=== PATIENT | female | born 1950 | race Caucasian/White ===

== ENCOUNTER 2016-11-15 05:41 | Outpatient (CLI) | payer MEDICARE ==
[~2016-11-15] VITALS: Ht 172.7 cm; Wt 99.8 kg
[~2016-11-15 05:41] MED LIST changes: -PANT40TA2 PO; -SUCR1TAB36 PO
== END 2016-11-15 14:22 ==
LOC: PREOP 05:41
PROVIDERS: ATTEND Surgery
DX: Z01.818 Encounter for other preprocedural examination (principal); K21.9 Gastro-esophageal reflux disease without esophagitis; R07.9 Chest pain, unspecified

== ENCOUNTER → 2016-11-15 | Outpatient (CLI) | payer MEDICARE ==
[~2016-11-15] MED LIST: ACHD5005 PO; ACYC800T PO; ATOR20TA66 PO; CETI10TA20 PO; CITA20TA4 PO; CYCL10TA9 PO; MELO-195 PO; MMT17NA NS; MTP25TSR PO; OMEP20CA12 PO; PANT40TA2 PO; SUCR1TAB36 PO; [UNRECOGNIZED DRUG - CODE] TP
--- NOTE | 2016-11-15 19:21 | Diagnostic Imaging Report ---
Examination: DEXA scan. Indication: Osteopenia. Technique: Bone mineral density estimated based on dual energy radiography over the lumbar spine and femoral necks, was performed. Findings: The lumbar spine T-score is 1.0. The T-score over the left femoral neck is 0.3 and over the right side is -0.2. Impression: T-score is within normal limits. The lumbar spine measurements are probably slightly exaggerated due to sclerotic degenerative changes. Dictated by: Dictated on workstation # [id number]
--- NOTE | 2016-11-16 08:18 | Diagnostic Imaging Report ---
Bilateral screening mammogram The current study was also evaluated with a Computer Aided Detection (CAD) system. Indication: Screening. No current complaints stated on the questionnaire. COMPARISON: 08/29/15. FINDINGS: The breasts are composed of scattered fibroglandular densities. No mass, architectural distortion or suspicious cluster of calcification seen. Allowing for technique and positional differences, no suspicious change is seen. IMPRESSION: No significant change. ACR BI-RADS Category 2: Benign findings. Result letter will be mailed to the patient. Note: At least 10% of breast cancer is not imaged by mammography. Dictated by: Dictated on workstation # [id number]
== END ==
LOC: RAD 10:07
PROVIDERS: ATTEND Obstetrics & Gynecology
DX: Z12.31 Encounter for screening mammogram for malignant neoplasm of breast (principal); Z13.820 Encounter for screening for osteoporosis; M47.816 Spondylosis without myelopathy or radiculopathy, lumbar region; Z78.0 Asymptomatic menopausal state
CPT/HCPCS: 77067; 77080

== ENCOUNTER 2016-11-20 07:48 | Day surgery (SDC) | payer MEDICARE ==
[~2016-11-20] VITALS: Ht 172.7 cm; Wt 99.8 kg
[2016-11-20] MEDS ORDERED: NS IV 1000 ML 1,000 ML IV STA (07:56)
[2016-11-20] MEDS ORDERED: HURRICAINE EXT TUBE (BENZOCAINE) XX PRN (08:00)
[2016-11-20] MEDS ORDERED: NS IV 1000 ML 1,000 ML ONE (08:03)
[2016-11-20 08:21] VITALS: BP 161/81
[2016-11-20] MEDS ORDERED: proPOfol 200 MG/20 ML (DIPRIVAN) VIAL IV ONE (08:29)
[2016-11-20] MEDS ORDERED: MIDAZOLAM 2 MG/2 ML (VERSED) VIAL ONE (08:29)
[2016-11-20] MEDS ORDERED: HURRICAINE EXT TUBE (BENZOCAINE) ONE (09:22)
[2016-11-20] MEDS ORDERED: SUCR1TAB36 PO (09:38)
[2016-11-20] MEDS ORDERED: PANT40TA2 PO (09:38)
--- NOTE | 2016-11-20 09:40 | Discharge Inst-Simple/Standard ---
Discharge Inst-Standard Discharge Medications New, Converted or Re-Newed RX: Transmitted to Pharmacy Patient Instructions/Follow Up Plan of Care/Instructions/FU: Follow up with Dr. Thibodeaux in 3 weeks Take medication as directed Hold Meloxicam for 3 more days. Activity as Tolerated: Yes Discharge Diet: No Restrictions MODE FAIRBANKS APRN Nov 20, 2016 09:40
[2016-11-20 10:05] VITALS: BP 142/84
--- NOTE | 2016-11-20 10:13 | Progress Note-Post Operative ---
Post-Operative Progess Note Surgeon (s)/Adobe Ball Mixer (s) Surgeon MARTÍN FONTANA DO [employer]er: o Pre-Operative Diagnosis GERD Post-Operative Diagnosis gastritis reflux esophgatiits, small hiatal hernia Post-Op Procedure Note Date of Procedure: Nov 20, 2016 Name of Procedure Performed: egd c biopsies Description of the Procedure: see note Findings of the Procedure see note Anesthesia Type per mda Estimated blood loss (mL): none Specimen(s) collected/removed antrum, GE junction MARTÍN FONTANA DO Nov 20, 2016 10:12 am
[2016-11-20 10:55] VITALS: BP 159/87
[2016-11-20 11:05] VITALS: BP 159/87
--- NOTE | 2016-11-21 10:11 | PROCEDURE REPORT ---
PROCEDURE PHYSICIAN: MARTÍN THIBODEAUX DATE OF PROCEDURE: 11/20/2016 PREOPERATIVE DIAGNOSIS: GERD. POSTOPERATIVE DIAGNOSES: 1. Gastritis. 2. Small hiatal hernia. 3. Reflux esophagitis. PROCEDURE: EGD with biopsy. SURGEON: Dr. Thibodeaux. ANESTHESIA: Per MDA. ESTIMATED BLOOD LOSS: None. COMPLICATIONS: None. INDICATIONS: The patient is a 66-year-old female with GERD symptoms. She was having chest pain and cardiology also wished for an EGD be performed. She understands the risks and benefits of the procedure and wished to proceed with the procedure. Consent was signed on the chart. PROCEDURE: The patient was taken to the endoscopy suite, placed in left lateral recumbent position. Timeout was performed. The scope was then inserted in the mouth, down the esophagus, stomach and into the duodenum. There were no polyps, masses or ulcerations of the duodenum. The scope was slowly back to the antrum which had erythematous changes. Biopsy of the antrum was obtained. The scope was then retroflexed noting a very small hiatal hernia. There were no polyps, masses, or ulcerations. The scope was returned to its normal position and slowly withdrawn. Some erythematous changes at the GE junction consistent some reflux esophagitis. A biopsy was obtained at this area. The scope was then slowly retracted back noting no other pathology. The patient tolerated the procedure well without any complications. She was taken to recovery room in stable condition. RECOMMENDATIONS: The patient will be switched to Protonix 40 mg daily and Carafate 1 gram 4 times a day. We will see how she is doing in 3 to 4 weeks in the office, further recommendations pending her symptoms at that time and pathology results. Job ID: [id number] Dictated Date: 11/20/2016 10:15:45 Harness Cleaner Date: 11/21/2016 10:06:32 / [email or web address]
--- OUTSIDE RECORDS SUMMARY | 2016-12-23 13:26 | XMS REPORT | Continuity of Care Document ---
Author Author [facility] Organization [facility] Address Unknown Phone Unavailable Allergies Active Description Code Type Severity Reaction Onset Reported/Identified Relationship to Patient Clinical Status Yes LATEX LATEX Mild N/A 03/09/2012 Yes SEASONAL SEASONAL Mild N/A 03/09/2012 Medications Problems Date Dx Coded Attending Type Code Diagnosis Diagnosed By 03/09/2012 Ot 724.2 LUMBAGO 10/14/2013 HONEY KIMBALL MD Ot 272.4 HYPERLIPIDEMIA NEC/NOS 10/14/2013 OHNEY KIMBALL MD Ot 278.00 OBESITY, NOS 10/14/2013 HONEY KIMBALL MD Ot 327.23 OBSTRUCTIVE SLEEP APNEA (ADULT) (PEDIATR 10/14/2013 HONEY KIMBALL MD Ot 401.9 HYPERTENSION NOS 10/14/2013 HONEY KIMBALL MD Ot 496 CHR AIRWAY OBSTRUCT NEC 10/14/2013 HONEY KIMBALL MD Ot 786.50 CHEST PAIN NOS 10/14/2013 HONEY KIMBALL MD Ot 794.30 ABN CARDIOVASC STUDY NOS 10/14/2013 HONEY KIMBALL MD Ot V58.69 OTH MED,LT,CURRENT USE 10/14/2013 HONEY KIMBALL MD Ot V85.33 BODY MASS INDEX 33.0-33.9, ADULT 07/28/2014 NAYAN MONTES DO Ot 327.23 OBSTRUCTIVE SLEEP APNEA (ADULT) (PEDIATR 08/29/2015 HONEY KIMBALL MD Ot 272.1 08/29/2015 HONEY KIMBALL MD Ot 272.3 08/29/2015 HONEY KIMBALL MD Ot 272.4 08/29/2015 HONEY KIMBALL MD Ot 401.9 08/29/2015 HONEY KIMBALL MD Ot 414.00 08/29/2015 HONEY KIMBALL MD Ot 571.8 08/29/2015 HONEY KIMBALL MD Ot 789.1 08/29/2015 HONEY KIMBALL MD Ot 790.6 09/16/2015 HANNA DE GUZMAN MD Ot Z12.31 10/06/2015 CAMERON TRAN MD Ot N64.4 10/27/2015 FONTANA DO MARTÍN D Ot Z01.818 ENCOUNTER FOR OTHER PREPROCEDURAL EXAMIN 10/27/2015 MARIZOL FANGMARTNÍ Ot Z12.11 ENCOUNTER FOR SCREENING FOR MALIGNANT NE 10/27/2015 MARIZOL FANGMARTÍN Ot Z87.19 PERSONAL HISTORY OF OTHER DISEASES OF TH 10/31/2015 MARIZOL FANGMARTÍN Ot Z01.818 10/31/2015 MARIZOL FANGMARTÍN Ot Z12.11 10/31/2015 MARIZOL FANGMARTÍN Ot Z87.19 11/08/2015 MARIZOL FANGMARTÍN Ot Z12.11 ENCOUNTER FOR SCREENING FOR MALIGNANT NE 11/08/2015 FONTANA MARTÍN Ot Z80.0 FAMILY HISTORY OF MALIGNANT NEOPLASM OF 11/09/2015 MARIZOL FANGMARTÍN Ot Z12.11 11/09/2015 FONTANA MARTÍN FANG Ot Z80.0 01/06/2016 HONEY KIMBALL MD Ot 272.1 PURE HYPERGLYCERIDEMIA 01/06/2016 HONEY KIMBALL MD Ot 272.3 HYPERCHYLOMICRONEMIA 01/06/2016 HONEY KIMBALL MD Ot 272.4 HYPERLIPIDEMIA NEC/NOS 01/06/2016 HONEY KIMBALL MD Ot 401.9 HYPERTENSION NOS 01/06/2016 HONEY KIMBALL MD Ot 414.00 CORON ATHEROSCLER NOS TYPE VESSEL, NATIV 01/06/2016 HONEY KIMBALL MD Ot 571.8 CHRONIC LIVER DIS NEC 01/06/2016 HONEY KIMBALL MD Ot 789.1 HEPATOMEGALY 01/06/2016 HONEY KIMBALL MD Ot 790.6 ABN BLOOD CHEMISTRY NEC 01/06/2016 GEGE HOWELL, HANNA Talbert Ot Z12.31 ENCNTR SCREEN MAMMOGRAM FOR MALIGNANT NE 01/06/2016 CHELSEA HOWELL, CAMERON Grider Ot N64.4 MASTODYNIA 01/06/2016 JES PEREZ LAST PATTERN GRADER Ot L70.8 OTHER ACNE 01/06/2016 JES PEREZ LAST PATTERN GRADER Ot L73.9 FOLLICULAR DISORDER, UNSPECIFIED 01/09/2016 JES PEREZ LAST PATTERN GRADER Ot L70.8 OTHER ACNE 01/09/2016 JES PEREZ LAST PATTERN GRADER Ot L73.9 FOLLICULAR DISORDER, UNSPECIFIED 10/31/2016 HANNA DE GUZMAN MD Ot 786.09 RESPIRATORY ABNORM NEC 10/31/2016 HANNA DE GUZMAN MD Ot 786.2 COUGH 10/31/2016 HANNA DE GUZMAN MD Ot V76.12 OTH SCREEN MAMMO-MALIGN NEOPLASM OF JENNY 10/31/2016 Ot 272.4 HYPERLIPIDEMIA NEC/NOS 10/31/2016 Ot 327.23 OBSTRUCTIVE SLEEP APNEA (ADULT) (PEDIATR 10/31/2016 Ot 397.0 TRICUSPID VALVE DISEASE 10/31/2016 Ot 424.0 MITRAL VALVE DISORDER 10/31/2016 Ot 786.09 RESPIRATORY ABNORM NEC 10/31/2016 Ot 786.50 CHEST PAIN NOS 10/31/2016 HONEY KIMBALL MD Ot 786.09 RESPIRATORY ABNORM NEC 10/31/2016 HONEY KIMBALL MD Ot 786.50 CHEST PAIN NOS 11/15/2016 HANNA DE GUZMAN MD Ot 786.09 RESPIRATORY ABNORM NEC 11/15/2016 HANNA DE GUZMAN MD Ot 786.2 COUGH 11/15/2016 HANNA DE GUZMAN MD Ot V76.12 OTH SCREEN MAMMO-MALIGN NEOPLASM OF JENNY 11/15/2016 Ot 272.4 HYPERLIPIDEMIA NEC/NOS 11/15/2016 Ot 327.23 OBSTRUCTIVE SLEEP APNEA (ADULT) (PEDIATR 11/15/2016 Ot 397.0 TRICUSPID VALVE DISEASE 11/15/2016 Ot 424.0 MITRAL VALVE DISORDER 11/15/2016 Ot 786.09 RESPIRATORY ABNORM NEC 11/15/2016 Ot 786.50 CHEST PAIN NOS 11/15/2016 HONEY KIMBALL MD Ot 786.09 RESPIRATORY ABNORM NEC 11/15/2016 HONEY KIMBALL MD Ot 786.50 CHEST PAIN NOS 11/16/2016 MARTÍN FONTANA DO Ot K21.9 GASTRO-ESOPHAGEAL REFLUX DISEASE WITHOUT 11/16/2016 MARTÍN FONTANA DO Ot R07.9 CHEST PAIN, UNSPECIFIED 11/16/2016 MARTÍN FONTANA DO Ot Z01.818 ENCOUNTER FOR OTHER PREPROCEDURAL EXAMIN 11/16/2016 CAMERON TRAN MD Ot M47.816 SPONDYLOSIS W/O MYELOPATHY OR RADICULOPA 11/16/2016 CAMERON TRAN MD Ot Z12.31 ENCNTR SCREEN MAMMOGRAM FOR MALIGNANT NE 11/16/2016 CAMERON TRAN MD Ot Z13.820 ENCOUNTER FOR SCREENING FOR OSTEOPOROSIS 11/20/2016 MARTÍN FONTANA DO Ot K21.0 GASTRO-ESOPHAGEAL REFLUX DISEASE WITH ES 11/20/2016 MARTÍN FONTANA DO Ot K29.70 GASTRITIS, UNSPECIFIED, WITHOUT BLEEDING 11/20/2016 MARTÍN FONTANA DO Ot K44.9 DIAPHRAGMATIC HERNIA WITHOUT OBSTRUCTION 11/21/2016 CAMERON TRAN MD Ot M47.816 SPONDYLOSIS W/O MYELOPATHY OR RADICULOPA 11/21/2016 CAMERON TRAN MD Ot Z12.31 ENCNTR SCREEN MAMMOGRAM FOR MALIGNANT NE 11/21/2016 CAMERON TRAN MD Ot Z13.820 ENCOUNTER FOR SCREENING FOR OSTEOPOROSIS 11/21/2016 MARTÍN FONTANA DO Ot K21.0 GASTRO-ESOPHAGEAL REFLUX DISEASE WITH ES 11/21/2016 MARTÍN FONTANA DO Ot K29.70 GASTRITIS, UNSPECIFIED, WITHOUT BLEEDING 11/21/2016 MARTÍN FONTANA DO Ot K44.9 DIAPHRAGMATIC HERNIA WITHOUT OBSTRUCTION 11/29/2016 MARTÍN FONTANA DO Ot K21.0 GASTRO-ESOPHAGEAL REFLUX DISEASE WITH ES 11/29/2016 MARTÍN FONTANA DO Ot K29.70 GASTRITIS, UNSPECIFIED, WITHOUT BLEEDING 11/29/2016 MARTÍN FONTANA DO Ot K44.9 DIAPHRAGMATIC HERNIA WITHOUT OBSTRUCTION 12/12/2016 CAMERON TRAN MD Ot M47.816 SPONDYLOSIS W/O MYELOPATHY OR RADICULOPA 12/12/2016 CAMERON TRAN MD Ot Z12.31 ENCNTR SCREEN MAMMOGRAM FOR MALIGNANT NE 12/12/2016 CAMERON TRAN MD Ot Z13.820 ENCOUNTER FOR SCREENING FOR OSTEOPOROSIS 12/12/2016 CAMERON TRAN MD Ot Z78.0 ASYMPTOMATIC MENOPAUSAL STATE Procedures Results Encounters ACCT No. Visit Date/Time Discharge Status Pt. Type Provider Facility Loc./Unit Complaint [id number] 11/20/2016 07:48:00 2016 11:05:00 DIS Outpatient MARTÍN FONTANA DO [facility] ENDO CHEST PAIN [id number] 11/15/2016 05:41:00 2016 14:22:00 DIS Outpatient MARTÍN FONTANA DO [facility] PREOP CHEST PAIN [id number] 01/06/2016 19:41:00 2015 20:48:00 DIS Emergency JES PEREZ LAST PATTERN GRADER [facility] ER [id number] 11/08/2015 08:21:00 2015 10:45:00 DIS Outpatient MARTÍN FONTANA DO [facility] SDC [id number] 07/27/2014 20:59:00 2013 06:40:00 DIS Outpatient NAYAN MONTES DO [facility] SLEEP [id number] 11/26/2013 08:41:00 2013 23:59:59 CLS Outpatient HONEY KIMBALL MD [facility] RAD [id number] 10/14/2013 07:01:00 2013 23:59:59 CLS Outpatient HONEY KIMBALL MD [facility] CATH ABNORMAL STRES, CAD, SOB, HTN [id number] 10/06/2013 11:50:00 2013 23:59:59 CLS Outpatient HONEY KIMBALL MD [facility] RAD CP,DYSPNEA,HLP [id number] 09/09/2013 15:11:00 2013 23:59:59 CLS Outpatient HANNA DE GUZMAN MD [facility] RAD ROUTINE,DYSPNEA,COUGH [id number] 11/15/2016 10:07:00 ACT Outpatient CAMERON TRAN MD [facility] RAD SCREENING,Z13.820 [id number] 10/27/2015 05:40:00 ACT Outpatient MARTÍN FONTANA DO [facility] PREOP [id number] 09/22/2015 13:01:00 ACT Outpatient CAMERON TRAN MD [facility] RAD [id number] 08/29/2015 07:25:00 ACT Outpatient HANNA DE GUZMAN MD [facility] [id number] 09/29/2013 08:53:00 Document Registration [id number] 03/09/2012 10:42:00 Document Registration
== END 2016-11-20 11:05 | disposition home or self-care (01) ==
LOC: ENDO 07:48
PROVIDERS: ATTEND Surgery
DX: K21.0 Gastro-esophageal reflux disease with esophagitis (principal); K44.9 Diaphragmatic hernia without obstruction or gangrene; K29.70 Gastritis, unspecified, without bleeding
CPT/HCPCS: 88305; 88342

== ENCOUNTER 2017-05-22 05:36 | Outpatient (CLI) | payer MEDICARE ==
[~2017-05-22] VITALS: Ht 172.7 cm; Wt 99.8 kg
[~2017-05-22 05:36] MED LIST changes: +PANT40TA2 PO; +SUCR1TAB36 PO
[2017-05-22] MEDS ORDERED: CELE-63 PO (13:38)
[2017-05-22] MEDS ORDERED: PANT40TA3 PO (13:38)
[2017-05-22] MEDS ORDERED: METO-270 PO (13:38)
== END 2017-05-22 13:57 ==
LOC: PREOP 05:36
PROVIDERS: ATTEND Surgery
DX: Z01.818 Encounter for other preprocedural examination (principal); Z87.19 Personal history of other diseases of the digestive system

== ENCOUNTER 2017-05-24 06:48 | Day surgery (SDC) | payer MEDICARE ==
[~2017-05-24] VITALS: Ht 172.7 cm; Wt 99.8 kg
[~2017-05-24 06:48] MED LIST changes: +CELE-63 PO; +METO-270 PO; +PANT40TA3 PO
--- OUTSIDE RECORDS SUMMARY | 2017-05-24 06:53 | XMS REPORT | Continuity of Care Document ---
Author Author [facility] Organization [facility] Address Unknown Phone Unavailable Allergies Active Description Code Type Severity Reaction Onset Reported/Identified Relationship to Patient Clinical Status Yes LATEX LATEX Mild N/A 03/09/2012 Yes SEASONAL SEASONAL Mild N/A 03/09/2012 Medications Problems Date Dx Coded Attending Type Code Diagnosis Diagnosed By 03/09/2012 Ot 724.2 LUMBAGO 10/14/2013 HONEY KIMBALL MD Ot 272.4 HYPERLIPIDEMIA NEC/NOS 10/14/2013 HONEY KIMBALL MD Ot 278.00 OBESITY, NOS 10/14/2013 [...] 10/06/2015 CAMERON TRAN MD Ot N64.4 10/27/2015 [place] MARTÍN Ot Z01.818 ENCOUNTER FOR OTHER PREPROCEDURAL EXAMIN 10/27/2015 MARIZOL FANGMARTÍN Ot Z12.11 ENCOUNTER FOR SCREENING FOR MALIGNANT NE 10/27/2015 MARIZOL FANGMARTÍN Ot Z87.19 PERSONAL HISTORY OF OTHER DISEASES OF TH 10/31/2015 MARIZOL FANGMARTÍN Ot Z01.818 10/31/2015 MARIZOL FANGMARTÍN Ot Z12.11 10/31/2015 AMRIZOL FANGMARTÍN Ot Z87.19 11/08/2015 FONTANA MARTÍN Ot Z12.11 ENCOUNTER FOR SCREENING FOR MALIGNANT [...] Ot 790.6 ABN BLOOD CHEMISTRY NEC 01/06/2016 HANNA DE GUZMAN MD Ot Z12.31 ENCNTR SCREEN MAMMOGRAM FOR MALIGNANT NE 01/06/2016 CHELSEA HOWELL, CAMERON Grider Ot N64.4 MASTODYNIA 01/06/2016 JES PEREZ [employer] Ot L70.8 OTHER ACNE 01/06/2016 JES PEREZ [employer] Ot L73.9 FOLLICULAR DISORDER, UNSPECIFIED 01/09/2016 JES PEREZ [employer] Ot L70.8 OTHER ACNE 01/09/2016 JES PEREZ [employer] Ot L73.9 FOLLICULAR DISORDER, UNSPECIFIED 10/31/2016 HANNA [...] Z13.820 ENCOUNTER FOR SCREENING FOR OSTEOPOROSIS 11/20/2016 FONTANA DO, MARTÍN D Ot K21.0 GASTRO-ESOPHAGEAL REFLUX DISEASE WITH ES 11/20/2016 FONTANA DO, MARTÍN D Ot K29.70 GASTRITIS, UNSPECIFIED, WITHOUT BLEEDING 11/20/2016 FONTANA DO, MARTÍN D Ot K44.9 DIAPHRAGMATIC HERNIA WITHOUT OBSTRUCTION 11/21/2016 CAMERON TRAN MD N Ot M47.816 SPONDYLOSIS W/O MYELOPATHY OR RADICULOPA 11/21/2016 CAMERON TRAN MD N Ot Z12.31 ENCNTR SCREEN MAMMOGRAM FOR MALIGNANT NE 11/21/2016 CAMERON TRAN MD N Ot Z13.820 ENCOUNTER FOR SCREENING FOR OSTEOPOROSIS 11/21/2016 FONTANA DO, MARTÍN D Ot K21.0 GASTRO-ESOPHAGEAL REFLUX DISEASE WITH ES 11/21/2016 FONTANA DO, MARTÍN D Ot K29.70 GASTRITIS, UNSPECIFIED, WITHOUT BLEEDING 11/21/2016 FONTANA DO, MARTÍN D Ot K44.9 DIAPHRAGMATIC HERNIA WITHOUT OBSTRUCTION 11/29/2016 FONTANA DO, MARTÍN D Ot K21.0 GASTRO-ESOPHAGEAL REFLUX DISEASE WITH ES 11/29/2016 FONTANA DO, MARTÍN D Ot K29.70 GASTRITIS, UNSPECIFIED, WITHOUT BLEEDING 11/29/2016 FONTANA DO, MARTÍN D Ot K44.9 DIAPHRAGMATIC HERNIA WITHOUT OBSTRUCTION 12/12/2016 CAMERON TRAN MD N Ot M47.816 SPONDYLOSIS W/O MYELOPATHY OR RADICULOPA 12/12/2016 CAMERON TRAN MD N Ot Z12.31 ENCNTR SCREEN MAMMOGRAM FOR MALIGNANT NE 12/12/2016 CAMERON TRAN MD N Ot Z13.820 ENCOUNTER FOR SCREENING FOR OSTEOPOROSIS 12/12/2016 CAMERON TRAN MD N Ot Z78.0 ASYMPTOMATIC MENOPAUSAL STATE 01/02/2017 CAMERON TRAN MD N Ot M47.816 SPONDYLOSIS W/O MYELOPATHY OR RADICULOPA 01/02/2017 CAMERON TRAN MD N Ot Z12.31 ENCNTR SCREEN MAMMOGRAM FOR MALIGNANT NE 01/02/2017 CHELSEA HOWELL, CAMERON N Ot Z13.820 ENCOUNTER FOR SCREENING FOR OSTEOPOROSIS 01/02/2017 CAMERON TRAN MD Ot Z78.0 ASYMPTOMATIC MENOPAUSAL STATE Procedures Results Encounters ACCT No. Visit Date/Time Discharge Status Pt. Type Provider Facility Loc./Unit Complaint [id number] 11/20/2016 07:48:00 2016 11:05:00 DIS Outpatient MARTÍN FONTANA DO [facility] ENDO CHEST PAIN [id number] 11/15/2016 10:07:00 2016 23:59:59 CLS Outpatient CAMERON TRAN MD [facility] RAD SCREENING,Z13.820 [id number] 11/15/2016 05:41:00 2016 14:22:00 DIS Outpatient MARTÍN FONTANA DO [facility] PREOP CHEST PAIN [id number] 01/06/2016 19:41:00 2015 20:48:00 DIS Emergency JES PEREZ APRN [facility] ER [id number] 11/08/2015 08:21:00 2015 10:45:00 DIS [id number] 10/27/2015 05:40:00 2015 23:59:59 CLS Outpatient MARTÍN FONTANA DO [facility] PREOP [id number] 09/22/2015 13:01:00 2015 23:59:59 CLS Outpatient CAMERON TRAN MD [facility] RAD [id number] 08/29/2015 07:25:00 2015 23:59:59 CLS Outpatient HANNA DE GUZMAN MD [facility] RAD [id number] 07/27/2014 20:59:00 2013 06:40:00 DIS Outpatient NAYAN MONTES DO [facility] SLEEP [id number] 11/26/2013 08:41:00 2013 23:59:59 CLS Outpatient HONEY KIMBALL MD [facility] RAD [id number] 10/14/2013 07:01:00 2013 23:59:59 CLS Outpatient HONEY KIMBALL MD [facility] CATH ABNORMAL STRES, CAD, SOB, HTN [id number] 10/06/2013 11:50:00 2013 23:59:59 CLS Outpatient HONEY KIMBALL MD [facility] RAD CP,DYSPNEA,HLP [id number] 09/09/2013 15:11:00 2013 23:59:59 CLS Outpatient HANNA DE GUZMAN MD [facility] RAD ROUTINE,DYSPNEA,COUGH [id number] 05/24/2017 14:45:00 PEN Preadmit MARTÍN FONTANA DO [facility] ENDO HX BARRETS [id number] 09/29/2013 08:53:00 Document Registration [id number] 03/09/2012 10:42:00 Document Registration
[2017-05-24] MEDS ORDERED: proPOfol 200 MG/20 ML (DIPRIVAN) VIAL IV ONE (07:07)
[2017-05-24] MEDS ORDERED: LACTATED RINGERS 1,000 ML IV ONE (07:08)
[2017-05-24] MEDS ORDERED: LACTATED RINGERS 1,000 ML IV STA (07:08)
[2017-05-24 07:09] VITALS: BP 162/66
[2017-05-24] MEDS ORDERED: HURRICAINE EXT TUBE (BENZOCAINE) XX PRN (07:15)
--- NOTE | 2017-05-24 07:18 | Progress Note-Pre Operative ---
Pre-Operative Progress Note H&P Reviewed The H&P was reviewed, patient examined and no changes noted. Date Seen by Provider: May 24, 2017 Time Seen by Provider: 07:18 Date H&P Reviewed: May 24, 2017 Time H&P Reviewed: 07:18 Pre-Operative Diagnosis: landis's esophagus, gerd MARTÍN FONTANA DO May 24, 2017 07:18
[2017-05-24] MEDS ORDERED: HURRICAINE EXT TUBE (BENZOCAINE) ONE (07:46)
--- NOTE | 2017-05-24 07:51 | Progress Note-Post Operative ---
Post-Operative Progess Note Surgeon (s)/Cloth Folder Machine (s) Surgeon MARTÍN FONTANA DO Cloth Folder Machine: na Pre-Operative Diagnosis landis's esophagus, gerd Post-Operative Diagnosis short segment landis's, small hiatal hernia Procedure & Operative Findings Date of Procedure 05/24/17 Procedure Performed/Findings egd c biopsies Anesthesia Type per residence supervisor Estimated Blood Loss Estimated blood loss (mL): scant Specimens/Packing Specimens Removed ge junction MARTÍN FONTANA DO May 24, 2017 07:51
[2017-05-24 08:00] VITALS: BP 150/83
--- NOTE | 2017-05-24 08:00 | Discharge Inst-Simple/Standard ---
Discharge Inst-Standard Patient Instructions/Follow Up Plan of Care/Instructions/FU: 2 weeks Carlos Eduardo Activity as Tolerated: Yes Discharge Diet: Regular Diet MARTÍN FONTANA DO May 24, 2017 07:59
[2017-05-24 08:30] VITALS: BP 149/77
[2017-05-24 08:45] VITALS: BP 149/77
--- NOTE | 2017-05-25 10:07 | OPERATIVE REPORT ---
DATE OF SERVICE: 05/24/2017 PREOPERATIVE DIAGNOSES: Hill's esophagus disease, gastroesophageal reflux disease. POSTOPERATIVE DIAGNOSES: Hill's esophagus disease, gastroesophageal reflux disease, small hiatal hernia. PROCEDURE: EGD with biopsies. SURGEON: Martín Thibodeaux DO. ANESTHESIA: Per RAMP SERVICE AGENT. ESTIMATED BLOOD LOSS: Scant. INDICATIONS: The patient is a 66-year-old female with Hill's esophagus. She understands risks and benefits of EGD and biopsies. She understands and wishes to proceed. Consent was signed and on chart. DESCRIPTION OF PROCEDURE: The patient was taken to the endoscopy suite, placed in left lateral recumbent position. A timeout was performed. Scope was inserted in mouth, down the esophagus, stomach and into the duodenum without difficulty. There were no polyps, mass or ulcerations within the duodenum. The scope was slowly retracted back into the stomach, which was further insufflated. There were no erythematous changes. No polyps, masses or ulcerations. Scope was also retroflexed noting no other pathology except for a small hiatal hernia. Scope was returned to its normal position, slowly withdrawn to the GE junction. There were some slight erythematous changes consistent with Hill's esophagus. There were no polyps, masses or ulcerations. Four-quadrant biopsies were obtained. The scope was then slowly retracted back noting no other pathology. The patient tolerated procedure well without any complications. She was taken to recovery room in stable condition. RECOMMENDATIONS: The patient is to continue on current medications. She will follow up in the office in approximately two to three weeks. The patient will need repeat endoscopy in 2 to 3 years unless pathology demonstrates anything new. Job ID: [id number] DocumentID: [id number] Dictated Date: 05/24/2017 13:04:29 Stick Welder Date: 05/24/2017 22:45:25 Dictated By: MARTÍN THIBODEAXU DO
== END 2017-05-24 08:45 | disposition home or self-care (01) ==
LOC: ENDO 06:48
PROVIDERS: ATTEND Surgery
DX: K22.70 Barrett's esophagus without dysplasia (principal); K21.9 Gastro-esophageal reflux disease without esophagitis; K44.9 Diaphragmatic hernia without obstruction or gangrene; I25.10 Atherosclerotic heart disease of native coronary artery without angina pectoris; E78.5 Hyperlipidemia, unspecified; I10 Essential (primary) hypertension; E78.1 Pure hyperglyceridemia; G47.33 Obstructive sleep apnea (adult) (pediatric); Z79.899 Other long term (current) drug therapy

== ENCOUNTER → 2018-02-27 | Outpatient (CLI) | payer MEDICARE ==
[~2018-02-27] MED LIST changes: -METO-270 PO; +METO-387 PO
--- NOTE | 2018-02-27 13:25 | Diagnostic Imaging Report ---
EXAMINATION: Left hip at 08:55 a.m. FINDINGS: Two views were obtained. There are no prior studies available for comparison. There is no fracture, dislocation, or acute bony abnormality evident. There is only mild degenerative disease involving the hip joint. The soft tissues are unremarkable. IMPRESSION: 1. There is no evidence for an acute bony abnormality. 2. If clinical concern regarding an underlying abnormality persists and further imaging is desired, then MRI will be recommended. Dictated by: Dictated on workstation # [id number]
== END ==
LOC: RAD 08:23
PROVIDERS: ATTEND Internal Medicine
DX: M25.552 Pain in left hip (principal)
CPT/HCPCS: 73502

== ENCOUNTER → 2018-03-03 | Outpatient (CLI) | payer MEDICARE ==
--- NOTE | 2018-03-04 13:39 | Diagnostic Imaging Report ---
INDICATION: Routine screening. COMPARISON: 11/15/2016 and 08/29/2015. TECHNIQUE: 2D and 3D bilateral screening mammography was performed with CAD. FINDINGS: Scattered fibroglandular densities are identified bilaterally. The parenchymal pattern appears stable. No mass or malignant appearing microcalcifications are seen. The axillae are unremarkable. IMPRESSION: No mammographic features suspicious for malignancy are identified. ACR BI-RADS Category 1: Negative. Result letter will be mailed to the patient. Note: At least 10% of breast cancer is not imaged by mammography. Dictated by: Dictated on workstation # [id number]
== END ==
LOC: RAD 14:15
PROVIDERS: ATTEND Nurse Practitioner
DX: Z12.31 Encounter for screening mammogram for malignant neoplasm of breast (principal)
CPT/HCPCS: 77067

== ENCOUNTER → 2018-10-15 | Outpatient (CLI) | payer MEDICARE ==
--- NOTE | 2018-10-15 12:29 | Diagnostic Imaging Report ---
PROCEDURE: US Hepatic (Liver). TECHNIQUE: Multiple real-time grayscale images were obtained over the right upper quadrant in various projections. INDICATION: Abnormal liver enzymes. FINDINGS: There are no prior studies available for comparison. The liver does not appear enlarged, but the liver is more echogenic than usually seen. This appearance does suggest fatty metamorphosis. There is no focal mass involving the liver and the biliary tree is not abnormally dilated. Spectral and color flow imaging of the portal vein and hepatic vein shows that the veins are patent and that there is normal direction of flow. There is no evidence for cholelithiasis or acute cholecystitis. The common bile duct is obscured by bowel gas as is the pancreas. The right kidney is generally unremarkable although the inferior pole of the right kidney is also partially obscured by bowel gas. IMPRESSION: 1. There is no acute abnormality of the right upper quadrant although the common bile duct, pancreas, and inferior pole of the right kidney are not optimally visualized due to overlying bowel gas. If further imaging is desired, then CT would be recommended. 2. The appearance of the liver does suggest fatty metamorphosis. Dictated by: Dictated on workstation # [id number]
== END ==
LOC: RAD 08:50
PROVIDERS: ATTEND Internal Medicine
DX: R94.5 Abnormal results of liver function studies (principal)
CPT/HCPCS: 76705

== ENCOUNTER 2019-01-15 05:35 | Outpatient (CLI) | payer MEDICARE ==
[~2019-01-15] VITALS: Ht 172.7 cm; Wt 97.5 kg
[2019-01-15] MEDS ORDERED: OMG1KC PO (15:15)
[2019-01-15] MEDS ORDERED: OMEP40CA36 PO (15:15)
== END 2019-01-15 15:22 | disposition home or self-care (01) ==
LOC: PREOP 05:35
PROVIDERS: ATTEND Surgery
DX: Z01.818 Encounter for other preprocedural examination (principal)

== ENCOUNTER 2019-01-22 08:06 | Day surgery (SDC) | payer MEDICARE ==
[2019-01-22] VITALS (12 sets, daily range): BP systolic 124–183; BP diastolic 72–87
[~2019-01-22] VITALS: Ht 172.7 cm; Wt 97.5 kg
[~2019-01-22 08:06] MED LIST changes: +OMEP40CA36 PO; +OMG1KC PO
[2019-01-22] MEDS ORDERED: LACTATED RINGERS 1,000 ML IV PRN (08:08)
--- OUTSIDE RECORDS SUMMARY | 2019-01-22 08:10 | XMS REPORT | Continuity of Care Document ---
Author Organization Unknown Address Unknown Allergies Active Description Code Type Severity Reaction Onset Reported/Identified Relationship to Patient Clinical Status Yes LATEX LATEX Mild N/A 03/09/2012 Yes SEASONAL SEASONAL Mild N/A 03/09/2012 Yes latex [id number] Drug Allergy Unknown N/A 01/15/2019 Medications There is no data. Problems Date Dx Coded Attending Type Code [...] HANNA DE GUZMAN MD Ot Z12.31 10/06/2015 CHELSEA HOWELL, CAMERON Grider Ot N64.4 10/27/2015 GRISWOLD MARTÍN Ot Z01.818 ENCOUNTER FOR OTHER PREPROCEDURAL EXAMIN 10/27/2015 FONTANA MARTÍN Ot Z12.11 ENCOUNTER FOR SCREENING FOR MALIGNANT NE 10/27/2015 GRISWOLD MARTÍN Ot Z87.19 PERSONAL HISTORY OF OTHER DISEASES OF TH 10/31/2015 FONTANA MARTÍN Ot Z01.818 10/31/2015 GRISWOLD MARTÍN Ot Z12.11 10/31/2015 GRISWOLD MARTÍN Ot Z87.19 11/08/2015 GRISWOLD MARTÍN Ot Z12.11 ENCOUNTER FOR SCREENING FOR MALIGNANT NE 11/08/2015 GRISWOLD MARTÍN Ot Z80.0 FAMILY HISTORY OF MALIGNANT NEOPLASM OF 11/09/2015 GRISWOLD MARTÍN Ot Z12.11 11/09/2015 GRISWOLD MARTÍN Ot Z80.0 01/06/2016 HONEY KIMBALL MD Ot [...] FOR MALIGNANT NE 01/06/2016 CHELSEA HOWELL, CAMERON N Ot N64.4 MASTODYNIA 01/06/2016 JES PEREZ RATE SUPERVISOR Ot L70.8 OTHER ACNE 01/06/2016 JES PEREZ RATE SUPERVISOR Ot L73.9 FOLLICULAR DISORDER, UNSPECIFIED 01/09/2016 JES PEREZ RATE SUPERVISOR Ot L70.8 OTHER ACNE 01/09/2016 JES PEREZ RATE SUPERVISOR Ot L73.9 FOLLICULAR DISORDER, UNSPECIFIED 10/31/2016 HANNA [...] MD Ot 786.50 CHEST PAIN NOS 11/15/2016 MARTÍN FONTANA DO Ot K21.9 GASTRO-ESOPHAGEAL REFLUX DISEASE WITHOUT 11/15/2016 MARTÍN FONTANA DO Ot R07.9 CHEST PAIN, UNSPECIFIED 11/15/2016 MARTÍN FONTANA DO Ot Z01.818 ENCOUNTER FOR OTHER PREPROCEDURAL EXAMIN 11/16/2016 MARTÍN FONTANA DO Ot K21.9 GASTRO-ESOPHAGEAL REFLUX DISEASE WITHOUT 11/16/2016 FONTANA DO, MARTÍN D Ot R07.9 CHEST PAIN, UNSPECIFIED 11/16/2016 FONTANA DO MARTÍN D Ot Z01.818 ENCOUNTER FOR OTHER PREPROCEDURAL EXAMIN 11/16/2016 CHELSEA HOWELL, CAMERON N Ot M47.816 SPONDYLOSIS W/O MYELOPATHY OR RADICULOPA 11/16/2016 CAMERON TRAN MD N Ot Z12.31 ENCNTR SCREEN MAMMOGRAM FOR MALIGNANT NE 11/16/2016 CAMERON TRAN MD N Ot Z13.820 ENCOUNTER FOR SCREENING FOR OSTEOPOROSIS 11/20/2016 MARIZOL FANG MARTÍN D Ot K21.0 GASTRO-ESOPHAGEAL REFLUX DISEASE WITH ES 11/20/2016 MARIZOL DO, MARTÍN D Ot K29.70 GASTRITIS, UNSPECIFIED, WITHOUT BLEEDING 11/20/2016 MARIZOL DO MARTÍN D Ot K44.9 DIAPHRAGMATIC HERNIA WITHOUT [...] K29.70 GASTRITIS, UNSPECIFIED, WITHOUT BLEEDING 11/21/2016 FONTANA DO MARTÍN D Ot K44.9 DIAPHRAGMATIC HERNIA WITHOUT OBSTRUCTION 11/29/2016 FONTANA DO MARTÍN D Ot K21.0 GASTRO-ESOPHAGEAL REFLUX DISEASE WITH ES 11/29/2016 FONTANA DO, MARTÍN D Ot K29.70 GASTRITIS, UNSPECIFIED, WITHOUT BLEEDING 11/29/2016 MARIZOL DO MARTÍN D Ot K44.9 DIAPHRAGMATIC HERNIA WITHOUT OBSTRUCTION 12/12/2016 CAMERON TRAN MD N Ot M47.816 SPONDYLOSIS W/O MYELOPATHY OR RADICULOPA 12/12/2016 CAMERON TRAN MD N Ot Z12.31 ENCNTR SCREEN MAMMOGRAM FOR MALIGNANT NE 12/12/2016 CAMERON TRAN MD N Ot Z13.820 ENCOUNTER FOR SCREENING FOR OSTEOPOROSIS 12/12/2016 CAMERON TRAN MD Ot Z78.0 ASYMPTOMATIC MENOPAUSAL STATE 01/02/2017 CAMERON TRAN MD Ot M47.816 SPONDYLOSIS W/O MYELOPATHY OR RADICULOPA 01/02/2017 CAMERON TRAN MD Ot Z12.31 ENCNTR SCREEN MAMMOGRAM FOR MALIGNANT NE 01/02/2017 CAMERON TRAN MD Ot Z13.820 ENCOUNTER FOR SCREENING FOR OSTEOPOROSIS 01/02/2017 CAMERON TRAN MD Ot Z78.0 ASYMPTOMATIC MENOPAUSAL STATE 05/22/2017 MARTÍN FONTANA DO Ot Z01.818 ENCOUNTER FOR OTHER PREPROCEDURAL EXAMIN 05/22/2017 MARTÍN FONTANA DO Ot Z87.19 PERSONAL HISTORY OF OTHER DISEASES OF TH 05/23/2017 HANNA DE GUZMAN MD Ot 786.09 RESPIRATORY ABNORM NEC 05/23/2017 HANNA DE GUZMAN MD Ot 786.2 COUGH 05/23/2017 HANNA DE GUZMAN MD Ot V76.12 OTH SCREEN MAMMO-MALIGN NEOPLASM OF [place] 05/23/2017 Ot 272.4 HYPERLIPIDEMIA NEC/NOS 05/23/2017 Ot 327.23 OBSTRUCTIVE SLEEP APNEA (ADULT) (PEDIATR 05/23/2017 Ot 397.0 TRICUSPID VALVE DISEASE 05/23/2017 Ot 424.0 MITRAL VALVE DISORDER 05/23/2017 Ot 786.09 RESPIRATORY ABNORM NEC 05/23/2017 Ot 786.50 CHEST PAIN NOS 05/23/2017 HONEY KIMBALL MD Ot 786.09 RESPIRATORY ABNORM NEC 05/23/2017 HONEY KIMBALL MD Ot 786.50 CHEST PAIN NOS 05/23/2017 CAMERON TRAN MD Ot M47.816 SPONDYLOSIS W/O MYELOPATHY OR RADICULOPA 05/23/2017 CAMERON TRAN MD Ot Z12.31 ENCNTR SCREEN MAMMOGRAM FOR MALIGNANT NE 05/23/2017 CAMERON TRAN MD Ot Z13.820 ENCOUNTER FOR SCREENING FOR OSTEOPOROSIS 05/23/2017 CAMERON TRAN MD Ot Z78.0 ASYMPTOMATIC MENOPAUSAL STATE 05/24/2017 MARTÍN FONTANA DO Ot E78.1 PURE HYPERGLYCERIDEMIA 05/24/2017 FONTANA DO, MARTÍN D Ot E78.5 HYPERLIPIDEMIA, UNSPECIFIED 05/24/2017 FONTANA DOKIATT D Ot G47.33 OBSTRUCTIVE SLEEP APNEA (ADULT) (PEDIATR 05/24/2017 KIA FONTANA DOTT D Ot I10 ESSENTIAL (PRIMARY) HYPERTENSION 05/24/2017 KIA FONTANA DOTT D Ot I25.10 ATHSCL HEART DISEASE OF [place] CORONARY 05/24/2017 KIA FONTANA DOTT D Ot K21.9 GASTRO-ESOPHAGEAL REFLUX DISEASE WITHOUT 05/24/2017 FONTANA DOKIATT D Ot 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 05/24/2017 KIA FONTANA DOTT D Ot K44.9 DIAPHRAGMATIC HERNIA WITHOUT OBSTRUCTION 05/24/2017 MARTÍN FONTANA DO D Ot Z79.899 OTHER LONGTERM (CURRENT) DRUG THERAPY 05/28/2017 MARTÍN FONTANA DO Ot E78.1 PURE HYPERGLYCERIDEMIA 05/28/2017 KIA FONTANA DOTT D Ot E78.5 HYPERLIPIDEMIA, UNSPECIFIED 05/28/2017 KIA FONTANA DOTT D Ot G47.33 OBSTRUCTIVE SLEEP APNEA (ADULT) (PEDIATR 05/28/2017 MARTÍN FONTANA DO D Ot I10 ESSENTIAL (PRIMARY) HYPERTENSION 05/28/2017 MARTÍN FONTANA DO D Ot I25.10 ATHSCL HEART DISEASE OF [place] CORONARY 05/28/2017 MARTÍN FONTANA DO D Ot K21.9 GASTRO-ESOPHAGEAL REFLUX DISEASE WITHOUT 05/28/2017 KIA FONTANA DOTT D Ot 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 05/28/2017 MARTÍN FONTANA DO Ot K44.9 DIAPHRAGMATIC HERNIA WITHOUT OBSTRUCTION 05/28/2017 MARTÍN FONTANA DO Ot Z79.899 OTHER OIL GAS AND PIPE TESTER (CURRENT) DRUG THERAPY 02/27/2018 HANNA DE GUZMAN MD Ot 786.09 RESPIRATORY ABNORM NEC 02/27/2018 HANNA DE GUZMAN MD Ot 786.2 COUGH 02/27/2018 HANNA DE GUZMAN MD Ot V76.12 OT SCREEN MAMMO-MALIGN NEOPLASM OF [place] 02/27/2018 Ot 272.4 HYPERLIPIDEMIA NEC/NOS 02/27/2018 Ot 327.23 OBSTRUCTIVE SLEEP APNEA (ADULT) (PEDIATR 02/27/2018 Ot 397.0 TRICUSPID VALVE DISEASE 02/27/2018 Ot 424.0 MITRAL VALVE DISORDER 02/27/2018 Ot 786.09 RESPIRATORY ABNORM NEC 02/27/2018 Ot 786.50 CHEST PAIN NOS 02/27/2018 HONEY KIMBALL MD Ot 786.09 RESPIRATORY ABNORM NEC 02/27/2018 HONEY KIMBALL MD Ot 786.50 CHEST PAIN NOS 02/27/2018 CHELSEA HOWELL, CAMERON Grider Ot M47.816 SPONDYLOSIS W/O MYELOPATHY OR RADICULOPA 02/27/2018 CAMERON TRAN MD N Ot Z12.31 ENCNTR SCREEN MAMMOGRAM FOR MALIGNANT NE 02/27/2018 VINCENT TRAN MDIN N Ot Z13.820 ENCOUNTER FOR SCREENING FOR OSTEOPOROSIS 02/27/2018 CAMERON TRAN MD N Ot Z78.0 ASYMPTOMATIC MENOPAUSAL STATE 02/27/2018 KENROY DEGROOT APRN Ot Z12.31 ENCNTR SCREEN MAMMOGRAM FOR MALIGNANT NE 03/03/2018 HANNA DE GUZMAN MD Ot M25.552 PAIN IN LEFT HIP 03/04/2018 KENROY DEGROOT APRN Ot Z12.31 ENCNTR SCREEN MAMMOGRAM FOR MALIGNANT NE 11/10/2018 HANNA DE GUZMAN MD Ot R94.5 ABNORMAL RESULTS OF LIVER FUNCTION STUDI 01/15/2019 MARTÍN FONTANA DO Ot Z01.818 ENCOUNTER FOR OTHER PREPROCEDURAL EXAMIN 01/16/2019 MARTÍN FONTANA DO Ot Z01.818 ENCOUNTER FOR OTHER PREPROCEDURAL EXAMIN Procedures There is no data. Results There is no data. Encounters ACCT No. Visit Date/Time Discharge Status Pt. Type Provider Facility Loc./Unit Complaint [id number] 01/15/2019 05:35:00 01/15/2019 15:22:00 DIS Outpatient MARTÍN FONTANA DO [facility] PREOP UMBILICAL HERNIA [id number] 10/15/2018 08:50:00 10/15/2018 23:59:59 CLS Outpatient HANNA DE GUZMAN MD [facility] RAD ABNORMAL LIVER FX STUDIES [id number] 03/03/2018 14:15:00 03/03/2018 23:59:59 CLS Outpatient KENROY DEGROOT APRN [facility] RAD SCREENING [id number] 02/27/2018 08:23:00 02/27/2018 23:59:59 CLS Outpatient HANNA DE GUZMAN MD [facility] RAD LEFT HIP PAIN [id number] 05/24/2017 06:48:00 05/24/2017 08:45:00 DIS Outpatient MARTÍN FONTANA DO [facility] ENDO HX BARRETS [id number] 05/22/2017 05:36:00 05/22/2017 13:57:00 DIS Outpatient MARTÍN FONTANA DO [facility] PREOP HX BARRETS [id number] 11/20/2016 07:48:00 11/20/2016 11:05:00 DIS Outpatient MARTÍN FONTANA DO [facility] ENDO CHEST PAIN [id number] 11/15/2016 10:07:00 11/15/2016 23:59:59 CLS Outpatient CAMERON TRAN MD [facility] RAD SCREENING,Z13.820 [id number] 11/15/2016 05:41:00 11/15/2016 14:22:00 DIS Outpatient MARTÍN FONTANA DO [facility] PREOP CHEST PAIN [id number] 01/06/2016 19:41:00 01/06/2016 20:48:00 DIS Emergency JES PEREZ APRN [facility] ER [id number] 11/08/2015 08:21:00 11/08/2015 10:45:00 DIS Outpatient MARTÍN FONTANA DO [facility] SDC [id number] 10/27/2015 05:40:00 10/27/2015 23:59:59 CLS Outpatient MARTÍN FONTANA DO [facility] PREOP [id number] 09/22/2015 13:01:00 09/22/2015 23:59:59 CLS Outpatient CAMERON TRAN MD [facility] RAD [id number] 08/29/2015 07:25:00 08/29/2015 23:59:59 CLS Outpatient HANNA DE GUZMAN MD [facility] RAD [id number] 07/27/2014 20:59:00 07/28/2014 06:40:00 DIS Outpatient NAYAN MONTES DO [facility] SLEEP [id number] 11/26/2013 08:41:00 11/26/2013 23:59:59 CLS Outpatient HONEY KIMBALL MD [facility] RAD [id number] 10/14/2013 07:01:00 10/14/2013 23:59:59 CLS Outpatient HONEY KIMBALL MD [facility] CATH ABNORMAL STRES, CAD, SOB, HTN [id number] 10/06/2013 11:50:00 10/06/2013 23:59:59 CLS Outpatient HONEY KIMBALL MD [facility] RAD CP,DYSPNEA,HLP [id number] 09/09/2013 15:11:00 09/09/2013 23:59:59 CLS Outpatient HANNA DE GUZMAN MD [facility] RAD ROUTINE,DYSPNEA,COUGH [id number] 01/22/2019 09:30:00 PEN Preadmit MARTÍN FONTANA DO [facility] SDC UMBILICAL HERNIA [id number] 09/29/2013 08:53:00 Document Registration [id number] 03/09/2012 10:42:00 Document Registration
[2019-01-22] MEDS ORDERED: ceFAZolin 2 GM/50 ML NS 50 ML IV ONE (08:15)
[2019-01-22] MEDS ORDERED: CATHETER FLUSH 10 ML SYR IV PRN (08:30)
[2019-01-22] MEDS ORDERED: FAMOTIDINE 20MG/2ML IV (PEPCID) ONE (08:33)
[2019-01-22] MEDS ORDERED: ONDANSETRON 4 MG/2 ML (SDV) Z0FRAN ONE (08:33)
[2019-01-22] MEDS ORDERED: SCOPOLAMINE 1.5 MG (TRANSDERM-SCOP) PATCH ONE (08:33)
[2019-01-22 08:36] LABS: BASOPHILS % (AUTO) 1 % (0-10); EOSINOPHILS # (AUTO) 0.2 10^3/uL (0.0-0.3); EOSINOPHILS % (AUTO) 3 % (0-10); HEMATOCRIT 43 % (35-52); HEMOGLOBIN 14.5 G/DL (11.5-16.0); LYMPHOCYTES # (AUTO) 1.7 X 10^3 (1.0-4.0); LYMPHOCYTES % (AUTO) 26 % (12-44); MEAN CORPUSCULAR HEMOGLOBIN 30 PG (25-34); MEAN CORPUSCULAR HGB CONC 34 G/DL (32-36); MEAN CORPUSCULAR VOLUME 88 FL (80-99); MEAN PLATELET VOLUME 10.9 FL (7.4-10.4); MONOCYTES # (AUTO) 0.6 X 10^3 (0.0-1.0); MONOCYTES % (AUTO) 9 % (0-12); NEUTROPHILS # (AUTO) 4.1 X 10^3 (1.8-7.8); NEUTROPHILS % (AUTO) 61 % (42-75); PLATELET COUNT 256 10^3/uL (130-400); RED CELL DISTRIBUTION WIDTH 13.7 % (10.0-14.5); WHITE BLOOD COUNT 6.7 10^3/uL (4.3-11.0)
[2019-01-22] MEDS ORDERED: SCOPOLAMINE 1.5 MG (TRANSDERM-SCOP) PATCH TOP ONE (08:45)
[2019-01-22] MEDS ORDERED: ONDANSETRON 4 MG/2 ML (SDV) Z0FRAN IV ONE (08:45)
[2019-01-22] MEDS ORDERED: FAMOTIDINE 20MG/2ML IV (PEPCID) IV ONE (08:45)
[2019-01-22] MEDS ORDERED: LIDOCAINE 1% INJ 20 ML 20 ML VIAL ONE (08:50)
[2019-01-22] MEDS ORDERED: BUP/EPI 0.5% 1:200,000 (SENSORCAINE) 30 ML VIAL ONE (08:50)
--- NOTE | 2019-01-22 10:56 | Progress Note-Pre Operative ---
Pre-Operative Progress Note H&P Reviewed The H&P was reviewed, patient examined and no changes noted. Date Seen by Provider: Jan 22, 2019 Time Seen by Provider: 10:43 Date H&P Reviewed: Jan 22, 2019 Time H&P Reviewed: 10:43 Pre-Operative Diagnosis: umbilical hernia MARTÍN FONTANA DO Jan 22, 2019 10:56
--- NOTE | 2019-01-22 11:55 | Progress Note-Post Operative ---
Post-Operative Progess Note Surgeon (s)/Advanced Practice Nurse (s) Surgeon MARTÍN FONTANA DO Advanced Practice Nurse: Dr. Grijalva Pre-Operative Diagnosis umbilical hernia Post-Operative Diagnosis incarcerated incisional hernia Procedure & Operative Findings Date of Procedure 01/22/19 Procedure Performed/Findings lap incarcerated incisional hernia repair Anesthesia Type gen Estimated Blood Loss Estimated blood loss (mL): min Specimens/Packing Specimens Removed hernia contents MARTÍN FONTANA DO Jan 22, 2019 11:55
[2019-01-22] MEDS ORDERED: ACHD5005 PO (11:56)
--- NOTE | 2019-01-22 11:57 | Discharge Inst-Simple/Standard ---
Discharge Inst-Standard Discharge Medications New, Converted or Re-Newed RX: RX on Chart Patient Instructions/Follow Up Plan of Care/Instructions/FU: 2 weeks Carlos Eduardo Activity as Tolerated: No Discharge Diet: Regular Diet Other Inst to Patient Follow up Appt: Make appointment for 2-3 week. Instructions: No lifting greater than 10 pounds. No strenuous activity. May shower in 24 hours, no tub bath or soaking. Use incentive spirometer at home as directed. No Smoking Skin/Wound Care: May remove bandages in 48 hours. You have special glue over incisions it will fall off on its own. Symptoms to Report: Appetite Changes, Extremity Discoloration, Numbness/Tingling, Swelling Increased, Bleeding Excessive, Eyesight Changes, Pain Increased, Urine Color Change, Constipation(Persistent), Fever over 101 degree F, Pain/Pressure in chest, Urinating Difficulty, Cough Up/Vomit Blood, Heart Beat Irreg/Pounding, Pain/Pressure in jaw, Vaginal Bleeding Increase, Cramps in feet or legs, Lightheadedness, Pain/Pressure in shoulder, Diarrhea(Persistent), Memory Changes Suddenly, Questions/Concerns, Weight gain consecutive days, Dizziness/Fainting, Nausea/Vomiting, Shortness of Breath, Weight gain over 2 pounds If questions or concerns contact your physician Or seek help at emergency department. MARTÍN FONTANA DO Jan 22, 2019 11:57
[2019-01-22] MEDS ORDERED: ONDANSETRON 4 MG/2 ML (SDV) Z0FRAN IVP PRN (12:15)
[2019-01-22] MEDS ORDERED: morphine INJ 10 MG/ML 1ML (SYR OR VIAL) IVP ONE (12:15)
[2019-01-22] MEDS ORDERED: HYDROmorphone 2 MG/ML VIAL (DILAUDID) IV ONE (12:15)
[2019-01-22] MEDS ORDERED: morphine INJ 10 MG/ML 1ML (SYR OR VIAL) ONE (12:26)
--- NOTE | 2019-01-22 13:08 | Anesthesia-General Post-Op ---
General Patient Condition Mental Status/LOC: Same as Preop Cardiovascular: Satisfactory Nausea/Vomiting: Absent Respiratory: Satisfactory Pain: Controlled Complications: Absent Post Op Complications Complications None Follow Up Care/Instructions Patient Instructions None needed. Anesthesia/Patient Condition Patient Condition Patient is doing well, no complaints, stable vital signs, no apparent adverse anesthesia problems. No complications reported per nursing. SHAREE AGUIRRE CRNA Jan 22, 2019 13:08
[2019-01-22] MEDS ORDERED: HYDROcodone/APAP 5 MG/325 MG (LORTAB) TAB PO ONE (13:45)
--- NOTE | 2019-01-23 04:00 | OPERATIVE REPORT ---
DATE OF SERVICE: 01/22/2019 PREOPERATIVE DIAGNOSIS: Umbilical hernia. POSTOPERATIVE DIAGNOSIS: Incarcerated incisional hernia. PROCEDURE: Laparoscopic incarcerated incisional hernia repair. SURGEON: Jacob Thibodeaux DO SLUDGE CONTROL OPERATOR: Dr. Grijalva assisted in retraction, dissection and closure. ANESTHESIA: General. ESTIMATED BLOOD LOSS: Minimal. COMPLICATIONS: None. INDICATIONS: The patient is a 68-year-old female who was found to have an umbilical hernia. She then informed that she had a tubal ligation that this is where the incision. She was explained risks and benefits of procedure and wished to proceed with procedure. Consent was signed and on the chart. DESCRIPTION OF PROCEDURE: The patient was taken to the operating suite. She was prepped and draped in sterile fashion. A surgical pause was performed. Local anesthetic was infiltrated in the left upper quadrant and 11 blade scalpel was used to make a skin incision. Cautery was used to dissect down to the anterior fascia, which was then divided. The muscles were and the posterior fascia was then dissected through along with the peritoneum and the abdomen was then entered. A balloon trocar was inserted into the abdomen and pneumoperitoneum was achieved. Under direct visualization of the laparoscope, a 5 mm trocar was placed in the right lower quadrant and a 5 mm trocar was placed in left lower quadrant. The hernia was located where her previous tubal ligation scar was. Stat was incarcerated up through this. This was grasped and retracted down and EndoShears with cautery were then used to mobilize the fat out of the defect until it was able to be completely removed. At this time, the fat was placed in an Endobag and removed through the 12 mm trocar site. A stab incision was made at the site of the hernia and a Lewis-Imelda was placed in the abdomen and a 4-1/2 inch Ventralight mesh was inserted in the abdomen and grasped through a stab incision. The balloon was insufflated. A SecureStrap Tacker was used to place tacks circumferentially. The balloon was then removed. An inner crown was created as well. The mesh had adequate coverage and laid nice and flat. The abdomen was then desufflated. The trocars were removed. The 12 mm fascial defects were closed closing the posterior 3-0 Vicryl and the anterior fascia 0- Vicryl. The subcutaneous tissues were then reapproximated using 4-0 Monocryl in a subcuticular fashion. The abdomen was then washed and dried and Skin Affix was placed over the incisions. The patient tolerated procedure well without any complications. She was taken to recovery room in stable condition. Job ID: [id number] DocumentID: [id number] Dictated Date: 01/22/2019 20:18:51 Account Receivable Clerk Date: 01/23/2019 03:59:11 Dictated By: DO ARY DIEGO
== END 2019-01-22 15:00 | disposition home or self-care (01) ==
LOC: SDC 08:06
PROVIDERS: ATTEND Surgery
DX: K43.0 Incisional hernia with obstruction, without gangrene (principal); G47.33 Obstructive sleep apnea (adult) (pediatric); K21.9 Gastro-esophageal reflux disease without esophagitis; E78.5 Hyperlipidemia, unspecified; E78.1 Pure hyperglyceridemia; I25.10 Atherosclerotic heart disease of native coronary artery without angina pectoris; I10 Essential (primary) hypertension; E66.9 Obesity, unspecified; Z68.32 Body mass index [BMI] 32.0-32.9, adult; Z79.899 Other long term (current) drug therapy
CPT/HCPCS: 36415; 85025; 87081; 88302

== ENCOUNTER → 2019-03-12 | Outpatient (CLI) | payer MEDICARE ==
--- NOTE | 2019-03-12 19:26 | Diagnostic Imaging Report ---
INDICATION: Screening The current study was also evaluated with a Computer Aided Detection (CAD) system. 3-D Tomographic imaging was also performed. COMPARISON: Comparison is made with prior examinations of 03/03/2018, 11/15/2016, and 08/29/2015. FINDINGS: There are scattered fibroglandular densities bilaterally. There is no dominant mass, spiculated lesion, or suspicious calcification identified. The skin, nipples, and axillae are unremarkable. IMPRESSION: Negative. ACR BI-RADS Category 1: Negative. Result letter will be mailed to the patient. Note: At least 10% of breast cancer is not imaged by mammography. Dictated by: Dictated on workstation # [id number]
== END ==
LOC: RAD 10:57
PROVIDERS: ATTEND Nurse Practitioner
DX: Z12.31 Encounter for screening mammogram for malignant neoplasm of breast (principal)
CPT/HCPCS: 77067

== ENCOUNTER → 2020-03-14 | Outpatient (CLI) | payer MEDICARE ==
[~2020-03-14] MED LIST changes: -CETI10TA20 PO; +CETI10TA21 PO; +CICL30GE5 TP; -METO-387 PO; +OMEP40CA27 PO; -OMEP40CA36 PO; -[UNRECOGNIZED DRUG - CODE] TP
--- NOTE | 2020-03-14 09:38 | Diagnostic Imaging Report ---
INDICATION: Pain behind the left nipple. COMPARISON: 03/12/2019 and 03/03/2018. TECHNIQUE: 2D and 3D bilateral diagnostic mammography was performed with CAD. FINDINGS: Scattered fibroglandular densities are identified bilaterally. No dominant mass or malignant appearing microcalcifications are seen. The axillae are unremarkable. IMPRESSION: No mammographic features suspicious for malignancy are identified. Even so, directed sonographic interrogation of the retroareolar left breast is recommended and will be performed today. ACR BI-RADS Category 0: Incomplete. (Needs additional imaging evaluation). Result letter will be mailed to the patient. Note: At least 10% of breast cancer is not imaged by mammography. Dictated by: Dictated on workstation # [id number]
--- NOTE | 2020-03-14 10:22 | Diagnostic Imaging Report ---
INDICATION: Pain behind the left nipple and palpable lump. COMPARISON: Correlation is made with the diagnostic study from earlier this same day. FINDINGS: Sonographic interrogation of the retroareolar left breast was performed. No sonographic abnormality is identified. No solid or cystic mass is detected. IMPRESSION: No sonographic abnormality is identified. ACR BI-RADS Category 1: Negative. Dictated by: Dictated on workstation # [id number]
== END ==
LOC: RAD 09:00
PROVIDERS: ATTEND Internal Medicine
DX: N63.20 Unspecified lump in the left breast, unspecified quadrant (principal)
CPT/HCPCS: 76642; 77066; G0279; 77062

== ENCOUNTER 2020-09-23 10:17 | Outpatient (RCR) | payer MEDICARE ==
[~2020-09-23 10:17] MED LIST changes: -CETI10TA21 PO; +CETI10TA49 PO; -PANT40TA3 PO; +PANT40TA52 PO
== END 2020-10-28 16:03 | disposition home or self-care (01) ==
PROVIDERS: ATTEND Internal Medicine
DX: R32 Unspecified urinary incontinence (principal)

== ENCOUNTER → 2021-01-27 | Outpatient (CLI) | payer MEDICARE ==
--- NOTE | 2021-01-27 09:35 | Diagnostic Imaging Report ---
Digital mammogram. Bilateral screening This study was compared to the prior exams of 03/14/2020, 03/12/2019 and 03/03/2018. At his time there are no current complaints. The current study was also evaluated with a Computer Aided Detection (CAD) system. FINDINGS: There are scattered fibroglandular densities in both breasts which could obscure a lesion. Overall, there does not appear to have been any significant change when compared to the prior exam. No primary or secondary sign of malignancy is noted. IMPRESSION: There is no radiographic evidence for malignancy ACR BI-RADS Category 1: Negative. Result letter will be mailed to the patient. Note: At least 10% of breast cancer is not imaged by mammography. Dictated by: Dictated on workstation # [id number]
== END ==
LOC: RAD 08:25
PROVIDERS: ATTEND Physician Assistant
DX: Z12.31 Encounter for screening mammogram for malignant neoplasm of breast (principal)
CPT/HCPCS: 77063; 77067

== ENCOUNTER 2021-03-17 05:28 | Outpatient (RCR) | payer MEDICARE ==
[~2021-03-17] VITALS: Ht 175.3 cm; Wt 96.6 kg
[~2021-03-17 05:28] MED LIST changes: +DIPH25CA79 PO; +METF-398 PO; -OMEP40CA27 PO; +OMEP40CA6 PO
== END 2021-03-17 09:56 | disposition home or self-care (01) ==
LOC: PREOP 05:28
PROVIDERS: ATTEND Surgery
DX: Z01.812 Encounter for preprocedural laboratory examination (principal); Z12.11 Encounter for screening for malignant neoplasm of colon; K22.70 Barrett's esophagus without dysplasia; Z20.822 Contact with and (suspected) exposure to COVID-19; Z80.0 Family history of malignant neoplasm of digestive organs
CPT/HCPCS: 87635

== ENCOUNTER 2021-03-21 09:53 | Day surgery (SDC) | payer MEDICARE ==
[~2021-03-21] VITALS: Ht 175.3 cm; Wt 96.6 kg
[2021-03-21] VITALS (7 sets, daily range): BP systolic 133–160; BP diastolic 68–74
[2021-03-21] MEDS ORDERED: LACTATED RINGERS 1,000 ML IV STA (10:01)
[2021-03-21] MEDS ORDERED: LACTATED RINGERS 1,000 ML IV ONE (10:10)
[2021-03-21] MEDS ORDERED: HURRICAINE EXT TUBE (BENZOCAINE) XX PRN (10:15)
[2021-03-21] MEDS ORDERED: PROPOFOL INJECTION 50 ML IV ONE (10:46)
[2021-03-21] MEDS ORDERED: MIDAZOLAM 2 MG/2 ML (VERSED) VIAL ONE (10:46)
--- NOTE | 2021-03-21 11:40 | Progress Note-Post Operative ---
Post-Operative Progess Note Surgeon (s)/Loft Worker Head (s) Surgeon MARTÍN FONTANA DO Loft Worker Head: na Pre-Operative Diagnosis Hill's and Family hx colon ca Post-Operative Diagnosis Gastritis, small hiatal hernia, Colon polyps, Procedure & Operative Findings Date of Procedure 03/21/21 Procedure Performed/Findings EGD c biopsies Colonoscopy c hot box polypectomty x2 and snare polypectomy x1 Anesthesia Type per simulation developer Estimated Blood Loss Estimated blood loss (mL): none Specimens/Packing Specimens Removed Antrum biopsy x1 GE biopsy x4 Colon polyps x3 MARTÍN FONTANA DO Mar 21, 2021 11:40
--- NOTE | 2021-03-21 11:41 | Discharge Inst-Simple/Standard ---
Discharge Inst-Standard Patient Instructions/Follow Up Plan of Care/Instructions/FU: 2 weeks josh Activity as Tolerated: Yes Discharge Diet: Regular Diet MARTÍN FONTANA DO Mar 21, 2021 11:41
--- NOTE | 2021-03-21 11:43 | Anesthesia-General Post-Op ---
MAC Patient Condition Mental Status/LOC: Same as Preop Cardiovascular: Satisfactory Nausea/Vomiting: Absent Respiratory: Satisfactory Pain: Controlled Complications: Absent Post Op Complications Complications None Follow Up Care/Instructions Patient Instructions None needed. Anesthesiology Discharge Order Discharge Order Patient is doing well, no complaints, stable vital signs, no apparent adverse anesthesia problems. No complications reported per nursing. ROGELIO CARRERA CRNA Mar 21, 2021 11:43
--- NOTE | 2021-03-21 17:43 | OPERATIVE REPORT ---
DATE OF SERVICE: 03/21/2021 PREOPERATIVE DIAGNOSES: Hill's esophagus, family history of colon cancer. POSTOPERATIVE DIAGNOSES: Gastritis, small hiatal hernia, colon polyps. SURGEON: Martín Thibodeaux DO ANESTHESIA: Per LAST PICKER. PROCEDURE: EGD with biopsies, colonoscopy with hot biopsy polypectomy x2, snare polypectomy x1. ESTIMATED BLOOD LOSS: None. COMPLICATIONS: None. INDICATIONS: The patient is a 70-year-old female with family history of colon cancer, history of Hill's. She understands risks and benefits of procedure and wished to proceed with procedure. Consent was signed in the chart. DESCRIPTION OF PROCEDURE: The patient was taken to the endoscopy suite, placed in left lateral recumbent position. Timeout was performed. Scope was inserted in mouth, down the esophagus, stomach and into the duodenum without difficulty. No polyps, masses or ulcerations within the duodenum. Scope was slowly retracted back into the stomach where it was further insufflated. Areas of erythematous changes consistent with gastritis were present. Biopsies of the antrum were obtained. Scope was retroflexed noting a very tiny hiatal hernia, no other pathology noted. Scope was returned to its normal position, slowly withdrawn to distal esophagus, fairly normal-appearing GE junction, maybe slightly changes of Hill's. Four quadrant biopsies were obtained. Scope was then slowly retracted back to completely remove, noting no other pathology. Digital rectal exam was performed. No palpable polyps, masses or ulcerations. Scope was inserted in the rectum and advanced all the way to cecum with minimal difficulty. Prep was adequate. Scope was slowly retracted back. No polyps, masses or ulcerations noted within the cecum. In the ascending colon, a small polyp was present, which hot biopsy polypectomy was performed. A second was present, which snare polypectomy was performed. Scope was then continuously retracted back. No polyps, masses or ulcerations within the remainder of the ascending and transverse colon. At the splenic flexure, a small polyp was present, which hot biopsy polypectomy was performed. Scope was then slowly retracted back. No polyps, masses or ulcerations within the remainder of the descending, sigmoid colon. Once in the rectum, scope was retroflexed noting no other pathology. Scope was returned to its normal position, slowly withdrawn until completely removed. The patient tolerated procedure well without any complications. She was taken to recovery room in stable condition. RECOMMENDATIONS: The patient will need repeat colonoscopy in 5 years. Any issues before that be seen at that time. The patient with history of Hill's. We will go over pathology. We would recommend repeat EGD in 3 years. Any issues before that be seen at that time. Continue on current medications. Job ID: [id number] DocumentID: [id number] Dictated Date: 03/21/2021 11:45:51 Kiln Head House Operator Date: 03/21/2021 17:42:52 Dictated By: MARTÍN THIBODEAUX DO
== END 2021-03-21 12:25 | disposition home or self-care (01) ==
LOC: ENDO 09:53
PROVIDERS: ATTEND Surgery
DX: Z12.11 Encounter for screening for malignant neoplasm of colon (principal); D12.2 Benign neoplasm of ascending colon; D12.3 Benign neoplasm of transverse colon; K29.50 Unspecified chronic gastritis without bleeding; K21.00 Gastro-esophageal reflux disease with esophagitis, without bleeding; K44.9 Diaphragmatic hernia without obstruction or gangrene; J30.2 Other seasonal allergic rhinitis; I25.10 Atherosclerotic heart disease of native coronary artery without angina pectoris; G47.33 Obstructive sleep apnea (adult) (pediatric); E66.9 Obesity, unspecified; K22.70 Barrett's esophagus without dysplasia; R03.0 Elevated blood-pressure reading, without diagnosis of hypertension; Z80.0 Family history of malignant neoplasm of digestive organs; Z91.040 Latex allergy status; Z79.899 Other long term (current) drug therapy; Z68.31 Body mass index [BMI] 31.0-31.9, adult
CPT/HCPCS: 88305

== ENCOUNTER → 2022-02-02 | Outpatient (CLI) | payer MEDICARE ==
--- NOTE | 2022-02-02 12:22 | Diagnostic Imaging Report ---
INDICATION: Routine screening. COMPARISON is made with prior mammograms from 01/27/2021 and 03/14/2020. 2-D and 3-D bilateral screening mammography was performed with CAD. Scattered fibroglandular densities are identified bilaterally. The parenchymal pattern is stable. No mass or malignant-appearing microcalcifications are seen. Axillae are unremarkable. IMPRESSION: BI-RADS Category 1 No mammographic features suspicious for malignancy are identified. ACR BI-RADS Category 1: Negative. Result letter will be mailed to the patient. Note: At least 10% of breast cancer is not imaged by mammography. Dictated by: Dictated on workstation # [id number]
== END ==
LOC: RAD 11:15
PROVIDERS: ATTEND Internal Medicine
DX: Z12.31 Encounter for screening mammogram for malignant neoplasm of breast (principal)
CPT/HCPCS: 77063; 77067

== ENCOUNTER → 2023-02-20 | Outpatient (CLI) | payer MEDICARE ==
--- NOTE | 2023-02-20 15:35 | Diagnostic Imaging Report ---
INDICATION: Routine screening. Comparison is made with prior mammogram from 02/02/2022 and 01/27/2021. 2-D and 3-D bilateral screening mammography was performed with CAD. Scattered fibroglandular densities are identified bilaterally. The parenchymal pattern is stable. No mass or malignant-appearing microcalcifications are seen. Axillae are unremarkable. IMPRESSION: No mammographic features suspicious for malignancy are identified. ACR BI-RADS Category 1: Negative. Result letter will be mailed to the patient. Note: At least 10% of breast cancer is not imaged by mammography. BI-RADS Category 1 Dictated by: Dictated on workstation # [id number]
== END ==
LOC: RAD 12:50
PROVIDERS: ATTEND Internal Medicine
DX: Z12.31 Encounter for screening mammogram for malignant neoplasm of breast (principal)
CPT/HCPCS: 77063; 77067